=== PATIENT | female | born 1955 | race Caucasian/White ===

== ENCOUNTER 2024-10-10 09:41 | Outpatient (CLI) | payer MEDICARE, SELFPAY ==
--- NOTE | 2024-10-10 09:48 | XR_ITS ---
FINAL REPORT CLINICAL HISTORY: B/L arch pain COMPARISON: None FINDINGS: RIGHT FOOT 3 views of the right foot were obtained. There is no acute fracture or dislocation. Visualized joint spaces are normally aligned. There is a small plantar spur. Soft tissues are unremarkable. IMPRESSION: No acute bony abnormality. Reviewed, Interpreted and Dictated by Jese Beebe MD Transcribed by Desirae Snyder Authenticated and . [facility]
--- NOTE | 2024-10-10 09:48 | XR_ITS ---
FINAL REPORT CLINICAL HISTORY: B/L arch pain COMPARISON: None FINDINGS: LEFT FOOT Three views of the left foot demonstrate no acute fracture or dislocation. The visualized joint spaces are normally aligned. A small plantar spur is noted. The soft tissues are unremarkable. IMPRESSION: No acute bony abnormality. Reviewed, Interpreted and Dictated by Jese Beebe MD Transcribed by Desirae Snyder Authenticated and [facility]
== END 2024-10-10 23:59 | disposition home or self-care (01) ==
LOC: RAD 09:44
PROVIDERS: PCP Family Medicine; Visit Provider Podiatrist
DX: M79.671 Pain in right foot (principal); M79.672 Pain in left foot
CPT/HCPCS: 73630